=== PATIENT | male | born 2000 | race African-American/Black ===

== ENCOUNTER 2021-02-24 13:27 | Emergency (ER) | payer OTHER, SELFPAY ==
[2021-02-24 13:36] VITALS: BP 134/89; PULSE 62; RESP 18; TEMP 36.4; O2SAT 100; BMI 24.2
[2021-02-24 16:32] VITALS: BP 120/80; PULSE 75; O2SAT 99
--- NOTE | 2021-02-24 17:04 | ED.SKABFB ---
HPI - Skin/Abscess/Foreign Bdy <Danielito Austin PA-C - Last Filed: 02/24/21 17:18> General Chief complaint: Skin/Abscess/Foreign Body Stated complaint: Infection in Groin Time Seen by Provider: 02/24/21 16:56 Source: patient Mode of arrival: Ambulatory Limitations: no limitations History of Present Illness HPI narrative: Zachariah presents today with chief complaint of wanting wound check. He reports that he had an abscess in his left groin that was incised and drained 4 days ago. He had the drain removed 2 days ago and is still having occasional discharge in bleeding from the area. He denies any worsening swelling, increased pain, fever, or any other acute concerns or complaints at this time. Related Data Allergies Allergy/AdvReac Type Severity Reaction Status Date / Time ibuprofen [From Motrin] Allergy Intermediate Hives Verified 02/24/21 13:57 Iodinated Contrast Media AdvReac Nausea Verified 02/24/21 13:57 Review of Systems <Danielito Austin PA-C - Last Filed: 02/24/21 17:18> Review of Systems Narrative: As per HPI Patient History <Danielito Austin PA-C - Last Filed: 02/24/21 17:18> Social History Smoking Status: Never smoker Smoking Status: Never smoker Substance Use Type: does not use Exam <Danielito Austin PA-C - Last Filed: 02/24/21 17:18> Narrative Exam Narrative: Exam Narrative: Const General: cooperative, healthy appearing, comfortable, no acute distress, well developed and well groomed Nutritional Appearance: average body habitus Orientation: alert and oriented x3 HENMT Head: normal to inspection and atraumatic Ears: hearing grossly normal bilaterally Nose: external nose normal and nares normal Face and sinus: normal facial exam Neck Neck: normal visual inspection and supple Resp Effort & Inspection: normal respiratory effort, able to speak in complete sentences, no audible wheezes, not labored, no nasal flaring and no respiratory distress Neuro General: alert, oriented x3, gait normal, tone normal and moves all extremities Cognition: normal cognition Speech: speech normal Gait: normal gait Skin Small surgical laceration noted to left groin. No significant surrounding erythema, no overt warmth, no drainage noted, no bleeding. No significant fluctuance appreciated. Psych Appearance: grossly normal and well kempt Mental Status: mental status grossly normal Speech and Movement: speech and movement normal Mood: congruent mood Affect: normal affect Initial Vital Signs Initial Vital Signs: Vital Signs Temperature 97.6 F 02/24/21 13:36 Pulse Rate 62 02/24/21 13:36 Respiratory Rate 18 02/24/21 13:36 Blood Pressure 134/89 02/24/21 13:36 Pulse Oximetry 100 02/24/21 13:36 <Elva Latham MD - Last Filed: 02/26/21 02:42> Initial Vital Signs Initial Vital Signs: Vital Signs Temperature 97.6 F 02/24/21 13:36 Pulse Rate 62 02/24/21 13:36 Respiratory Rate 18 02/24/21 13:36 Blood Pressure 134/89 02/24/21 13:36 Pulse Oximetry 100 02/24/21 13:36 Course <Danielito Austin PA-C - Last Filed: 02/24/21 17:18> Vital Signs Vital signs: Vital Signs - 8 hr 02/24/21 13:36 02/24/21 16:32 Temperature 97.6 F Pulse Rate 62 75 Respiratory Rate 18 Blood Pressure 134/89 120/80 Pulse Oximetry 100 99 <Elva Latham MD - Last Filed: 02/26/21 02:42> Vital Signs Vital signs: Vital Signs - 8 hr 02/24/21 13:36 02/24/21 16:32 Temperature 97.6 F Pulse Rate 62 75 Respiratory Rate 18 Blood Pressure 134/89 120/80 Pulse Oximetry 100 99 MDM - Skin/Abscess/Foreign Bdy <Danielito Austin PA-C - Last Filed: 02/24/21 17:18> MDM Narrative Medical decision making narrative: Differential diagnosis includes abscess, cellulitis. Patient is well-appearing at this time without any signs of worsening infection at this time. Recommend application of warm compresses and continued monitoring with watchful waiting. ER return precautions were discussed. Patient verbalizes understanding and agrees to plan and has no further concerns at this time. Thank you A [id number] system was used with the dictation of this note. Please disregard any spelling or grammatical errors. Discharge Plan Departure Patient Disposition: Home Clinical Impression: Visit for wound check Instructions: DI for Wound Infection Activity Restrictions/Additional Instructions: It was nice to meet you this evening. Your wound appears to be healing up well at this time. Please continue to use warm compresses to the area to promote drainage. If you experience increased warmth, swelling, increased swelling, fever or have any other acute concerns or complaints do not hesitate to return for re-evaluation. Thank you Danielito Austin PA-C Referrals: ARNULFO Kinsey MD [Primary Care Provider] - Stand Alone Forms: Work Release Note <Elva Latham MD - Last Filed: 02/26/21 02:42> Cosign ED Attending Cosignature Attestation: I was immediately available in the department for consultation throughout this patient's visit. I agree with documentation as above. Elva Latham MD
== END 2021-02-24 17:27 | disposition home or self-care (01) ==
PROVIDERS: Emergency Provider Physician Assistant
DX: Z48.00 Encounter for change or removal of nonsurgical wound dressing (principal)
CPT/HCPCS: 99281

== ENCOUNTER 2021-03-08 04:44 | Emergency (ER) | payer OTHER, SELFPAY ==
[2021-03-08 04:57] VITALS: BP 134/91; PULSE 65; RESP 18; TEMP 37; O2SAT 95; BMI 25.7
--- NOTE | 2021-03-08 05:10 | ED_ITS ---
HPI - General Adult General Chief complaint: Syncope Stated complaint: spotty blurred vision x 3 weeks Time Seen by Provider: 03/08/21 04:49 Source: patient Mode of arrival: Ambulatory Limitations: no limitations History of Present Illness HPI narrative: This is a 20-year-old male who comes to emergency department with complaint of insomnia for the past 3-4 weeks. Patient has had difficulty sleeping in the past but states he is not really sleeping at all at night. He does not appreciate any significant new stressors, anxiety or depression but does states that he was in touch with his committed about talking to a counselor as he thought there might be a mental health portion to it. He has had some chronic insomnia but typically will get some sleep but falls asleep later tonight. They did switch him to night shifts to see if he would do better sleeping during the day but this has not improved his symptoms. He states he has started developed headaches, he has had difficulty with focus, he states sometimes when he is standing I will have spot of blurred vision for a couple seconds which resolved. He denies syncope. He denies any active chest pain or shortness of breath. No active nausea or vomiting. No abdominal pain at this time. He did have a polyp removed about 2 months ago which was benign on colonoscopy and also had an EGD at that time. He denies any dysuria urgency or frequency. Patient states he is otherwise healthy. He denies prior surgeries. He denies daily medications. He has tried melatonin in the past with no improvement for his sleep. He denies tobacco. He drinks true drinks a week. He denies any illicit. He did relocate here from [place] recently with the [employer] . Related Data Previous Rx's Medication Instructions Recorded hydroxyzine HCl 25 mg tablet 25 mg PO BEDTIME PRN #10 tab 03/08/21 Allergies Allergy/AdvReac Type Severity Reaction Status Date / Time ibuprofen [From Motrin] Allergy Intermediate Hives Verified 02/24/21 13:57 Iodinated Contrast Media AdvReac Nausea Verified 02/24/21 13:57 Review of Systems Review of Systems ROS Unobtainable: All systems reviewed & are unremarkable except as noted in HPI and below Patient History Social History Smoking Status: Never smoker Smoking Status: Never smoker alcohol intake frequency: 0-2 drinks per day Substance Use Type: does not use Exam Narrative Exam Narrative: GEN: well nourished, well appearing male, alert and oriented x 3, patient appears to be in mild distress. HEENT: Atraumatic, pupils are equal round reactive to light, extraocular movements are intact, nares are clear, TMs are clear with no fluid, there is no conjunctival pallor. Throat is clear without any exudates, erythema, tonsillar enlargement or uvular deviation HEART: Regular rate and rhythm without murmur, clicks, rubs. Pulses are equal in upper and lower extremities LUNGS:Lungs clear to auscultation, no wheezes, rales, crackles, chest moves symmetrically ABD:bowel sounds normal, soft, non-tender, no guarding, rebound, rigidity, no masses noted, no hepatosplenomegaly :No CVA tenderness MSCL: Non-tender, no muscle atrophy, muscles strength 5/5 upper and lower extremities, full range of motion, normal gait NEURO:CN 2-12 intact, sensation normal SKIN: No rash, erythema or other skin changes noted. PSYCH: Denies any depressive or anxious thoughts, + insomnia, denies anhedonia. No hallucinations. No thoughts of harm to self or others. Initial Vital Signs Initial Vital Signs: Vital Signs Temperature 98.6 F 03/08/21 04:57 Pulse Rate 65 03/08/21 04:57 Respiratory Rate 18 03/08/21 04:57 Blood Pressure 134/91 H 03/08/21 04:57 Pulse Oximetry 95 03/08/21 04:57 Course Orders Ordered: ED Orders 03/08/21 05:09 EKG-12 Lead Stat 03/08/21 05:10 Complete Blood Count AUTO DIFF Stat Comprehensive Metabolic Panel Stat Lipase Stat Thyroid Stimulating Hormone Stat Vital Signs Vital signs: Vital Signs - 8 hr 03/08/21 04:57 Temperature 98.6 F Pulse Rate 65 Respiratory Rate 18 Blood Pressure 134/91 H Pulse Oximetry 95 Medical Decision Making Lab Data Result diagrams: 03/08/21 05:10 03/08/21 05:10 Labs: Lab Results 03/08/21 03/08/21 03/08/21 Range/Units 05:10 05:10 05:10 WBC 4.8 (4.5-11.0) X10^3/uL RBC 5.31 (4.5-5.9) X10^6/uL Hgb 15.1 (13.5-17.5) g/dL Hct 45.5 (41-53) % MCV 85.6 (80-100) fL MCH 28.3 (26-34) PG MCHC 33.1 (30-36) % RDW 13.1 (11.6-14.8) % Plt Count 207 (150-400) X10^3/uL Neut % (Auto) 44.8 L (50-75) % Lymph % (Auto) 41.1 H (25-40) % [place] % (Auto) 9.1 (3-14) % Eos % (Auto) 4.3 H (2-4) % Baso % (Auto) 0.7 (0-2) % Neut # (Auto) 2200 (9233-2007) /uL Lymph # (Auto) 2000 (2116-6336) /uL [place] # (Auto) 400 (0-900) /uL Eos # (Auto) 200 (0-450) /uL Baso # (Auto) 0 (0-100) /uL Sodium 141 (137-145) mmol/L Potassium 3.9 (3.4-5.1) mmol/L Chloride 103 (98-107) mmol/L Carbon Dioxide 29 (22-32) mmol/L BUN 11 (9-20) mg/dL Creatinine 0.78 (0.66-1.25) mg/dL Estimated GFR > 60.0 (>60) mL/min BUN/Creatinine Ratio 14.1 (6-22) Glucose 121 H (70-100) mg/dL Calcium 9.4 (8.4-10.2) mg/dL Total Bilirubin 0.6 (0.2-1.3) mg/dL AST 44 (17-59) IU/L ALT 58 H (<50) IU/L Alkaline Phosphatase 45 (38-126) U/L Total Protein 7.4 (6.3-8.2) g/dL Albumin 4.5 (3.5-5.0) g/dL Globulin 2.9 (1.7-4.1) g/dL Albumin/Globulin Ratio 1.6 (1.0-2.8) Lipase 30 (23-300) U/L TSH 1.14 (0.47-4.68) uIU/mL ECG Data Attestation: I personally reviewed and interpreted this ECG as follows: Prior ECG tracings: not available for review Interpretation: Sinus rhythm sinus arrhythmia rate of 60 2p are 152 QRS 82 and QTC of 371. No acute changes appreciated. MDM Narrative Medical decision making narrative: This is a 20-year-old male who comes [facility] with complaint of insomnia. Patient notes he has had, generally felt unwell and had some lightheadedness body blurred vision intermittently when standing or up for prolonged periods patient's labs and EKG do not show any acute changes. During discussion he does flip between days and nights and he denies any mood disorder or anxiety but he himself brought that up is a possibility during our discussion. He has not seen anyone at the [facility] about this. We discussed trying a short course of hydroxyzine to see if this is helpful, sleep hygiene and attempting other noninvasive measures. He does not describe any symptoms consistent with sleep apnea. Patient sounds like he has more trouble initiating sleep than anything else. He has open her resource reaching out and he has contacted the nurse hotline at the [facility] about reaching a counselor and was giving a number to call this morning. He is open to our forensic social worker reaching out to him by phone for resources. Discharge Plan Departure Patient Disposition: Home Clinical Impression: Insomnia Instructions: Insomnia Activity Restrictions/Additional Instructions: Follow up with your physician at the [facility]. Call for an appointment. There are many causes for insomnia. Talk with your physician about possible causes. Sleep hygiene is important but it may be helpful to try a short term medication. You can look up sleep hygiene on the internet for recommendations for optimizing your situation. You may take this medication 1-2 tablets 1 hour before sleep. Prescription sent to [facility] in [place]. Insomnia can also sometimes reflect mood or anxiety disorders and should be discussed also. Your labs and EKG today show no major changes. Please return for new or worsening symptoms, passing, new chest pain or shortness of breath, palpitations or fast heartbeat, persistent vomiting, it is harming of yourself or others or other new or concerning symptoms. Prescriptions: New hydroxyzine HCl 25 mg tablet 25 mg PO BEDTIME PRN (Reason: insomnia) Qty: 10 RF: 0 Referrals: ARNULFO Kinsey MD [Primary Care Provider] - Stand Alone Forms: Work Release Note
[2021-03-08 05:20] LABS: Add Manual Diff / Slide Review NO; Basophils Absolute Auto 0 /uL (0-100); Basophils Percent Auto 0.7 % (0-2); Eosinophils Absolute Auto 200 /uL (0-450); Eosinophils Percent Auto 4.3 % (2-4); Hematocrit 45.5 % (41-53); Hemoglobin 15.1 g/dL (13.5-17.5); Lymphocytes Absolute Auto 2000 /uL (1100-4500); Lymphocytes Percent Auto 41.1 % (25-40); Mean Corpuscular HGB Conc 33.1 % (30-36); Mean Corpuscular Hemoglobin 28.3 PG (26-34); Mean Corpuscular Volume 85.6 fL (80-100); Monocytes Absolute Auto 400 /uL (0-900); Monocytes Percent Auto 9.1 % (3-14); Neutrophils Absolute Auto 2200 /uL (1500-7000); Neutrophils Percent Auto 44.8 % (50-75); Platelet Count 207 X10^3/uL (150-400); Red Blood Cell Count 5.31 X10^6/uL (4.5-5.9); Red Cell Distribution Width 13.1 % (11.6-14.8); White Blood Cell Count 4.8 X10^3/uL (4.5-11.0)
[2021-03-08 05:31] LABS: Alanine Aminotransferase 58 IU/L (<50); Albumin 4.5 g/dL (3.5-5.0); Albumin Globulin Ratio 1.6 (1.0-2.8); Alkaline Phosphatase 45 U/L (38-126); Aspartate Aminotransferase 44 IU/L (17-59); BUN Creatinine Ratio 14.1 (6-22); Bilirubin Total 0.6 mg/dL (0.2-1.3); Blood Urea Nitrogen 11 mg/dL (9-20); Calcium 9.4 mg/dL (8.4-10.2); Carbon Dioxide 29 mmol/L (22-32); Chloride 103 mmol/L (98-107); Estimated Glomerular Filt Rate > 60.0 mL/min (>60); Globulin 2.9 g/dL (1.7-4.1); Glucose 121 mg/dL (70-100); HEMOLYSIS < 15 (0-50); Lipase 30 U/L (23-300); Potassium 3.9 mmol/L (3.4-5.1); Sodium 141 mmol/L (137-145); Total Protein 7.4 g/dL (6.3-8.2)
[2021-03-08 06:08] LABS: Thyroid Stimulating Hormone 1.14 uIU/mL (0.47-4.68)
[2021-03-08 06:53] VITALS: BP 140/74; PULSE 60; RESP 14; O2SAT 98
== END 2021-03-08 06:53 | disposition home or self-care (01) ==
PROVIDERS: Emergency Provider Emergency Medicine
DX: G47.00 Insomnia, unspecified (principal); R55 Syncope and collapse; H53.9 Unspecified visual disturbance; R51.9 Headache, unspecified
CPT/HCPCS: 36415; 80053; 83690; 84443; 85025; 93005; 99283; 99284